=== PATIENT | male | born 1980 | race Caucasian/White ===

== ENCOUNTER 2019-07-15 22:15 | Emergency (ER) | payer SELFPAY ==
[~2019-07-15] VITALS: Ht 170.2 cm; Wt 63.5 kg
[2019-07-15 22:24] VITALS: Ht 170.2 cm; Wt 63.5 kg
[2019-07-15 22:46] VITALS: BP 95/59
== END 2019-07-15 22:46 | disposition other institution (70) ==
LOC: ED 22:15
DX: F10.129 Alcohol abuse with intoxication, unspecified (principal); F17.210 Nicotine dependence, cigarettes, uncomplicated
CPT/HCPCS: 82962

== ENCOUNTER 2019-07-15 22:15 | Emergency (ER) | payer OTHER | END 2019-07-15 22:46 | disposition other institution (70) | LOC: ED 22:15 | DX: Z02.89 Encounter for other administrative examinations (principal) ==